=== PATIENT | female | born 1965 | race Caucasian/White ===

== ENCOUNTER 2020-06-08 22:32 | Observation (INO) | payer SELFPAY ==
[2020-06-08] MEDS ORDERED: GI Cocktail Oral Solution 30 ML PO ONE (22:58)
[2020-06-08] MEDS ORDERED: LORazepam 1 MG Tab PO ONE (23:11)
--- NOTE | 2020-06-08 23:11 | EDM.PDOC ---
ED HPI GENERAL MEDICAL PROBLEM - General Stated Complaint: ER Time Seen by Provider: 06/08/20 22:32 Source of Information: Reports: Patient History Limitations: Reports: No Limitations - History of Present Illness INITIAL COMMENTS - FREE TEXT/NARRATIVE: Pt. presents to ER via [facility]. Pt. called police and was making paranoid statements. She was subsequently brought to ER. Pt. does have a complaint of epi gastric pain, and states that the discomfort is consistent with her GERD. 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 She states that she hears messages at random, and also from music. She states that she had been working at [employer], and that she lost her job recently because they were concerned about her mental health, as she was making paranoid statements. She currently does not have a PCP or mental health care provider, partially due to the fact that she has no insurance. She moved to [place] in October and lives in an apartment. Denies any use of drugs or alcohol. Pt. states that she previously has been on psych meds but hasn't been for about 3 years. She has never been in our ER, but in reviewing her chart, it appears that she had suicide attempts in 2012 and 2013. It appears that she has been making paranoid/hallucinatory statements for the past several years. She is diagnosed with depression and PTSD, and was hospitalized for mental health at [facility] in 2013. Again, her primary complaint today is abdominal and chest pain, see above. Denies any jaw, arm, neck or back pain. No palpitations. Denies any shortness of breath. She has had some cough and does smoke cigarettes. No sinus congestion, sore throat, fever or chills. Onset: Today Onset Date: 06/08/20 Location: Reports: Chest, Abdomen Bilateral Middle Abdominal Pain Score (Numeric/FACES): 5 - Related Data Allergies Allergy/AdvReac Type Severity Reaction Status Date / Time acetaminophen [From Percocet] Allergy Cannot Verified 04/17/19 23:47 MDT Remember amantadine Allergy Cannot Verified 04/17/19 23:47 MDT Remember amoxicillin Allergy Cannot Verified 04/17/19 23:47 MDT Remember ciprofloxacin [From Cipro] Allergy Cannot Verified 04/17/19 23:47 MDT Remember doxycycline Allergy Cannot Verified 04/17/19 23:47 MDT Remember gentamicin Allergy Cannot Verified 04/17/19 23:47 MDT Remember ketorolac [From Toradol] Allergy Cannot Verified 04/17/19 23:47 MDT Remember oseltamivir [From Tamiflu] Allergy Cannot Verified 04/17/19 23:47 MDT Remember oxycodone [From Percocet] Allergy Cannot Verified 04/17/19 23:47 MDT Remember polymyxin B [From Polytrim] Allergy Cannot Verified 04/17/19 23:47 MDT Remember sulfamethoxazole Allergy Cannot Verified 04/17/19 23:47 MDT Remember trimethoprim [From Polytrim] Allergy Cannot Verified 04/17/19 23:47 MDT Remember Home Meds: Home Meds Aspirin [Aspirin EC] 325 mg PO 04/17/19 [History] Diltiazem [Cardizem CD] 04/17/19 [History] Furosemide 04/17/19 [History] Pantoprazole Sodium 04/17/19 [History] LORazepam [Ativan] 0.5 mg PO Q24H PRN #5 tablet 04/18/19 [Rx] Sucralfate [Carafate] 1 gm PO Q6H #28 tablet 04/18/19 [Rx] Past Medical History Cardiovascular History: Reports: Hypertension Psychiatric History: Reports: Anxiety, Depression Social & Family History - Family History Family Medical History: Noncontributory ED ROS GENERAL - Review of Systems Review Of Systems: See Below Constitutional: Reports: No Symptoms HEENT: Reports: No Symptoms Respiratory: Reports: No Symptoms Cardiovascular: Reports: Chest Pain Endocrine: Reports: No Symptoms GI/Abdominal: Reports: Abdominal Pain (epigastric) : Reports: No Symptoms Musculoskeletal: Reports: No Symptoms Skin: Reports: No Symptoms Neurological: Reports: No Symptoms Psychiatric: Reports: Anxiety, Hallucinations, Other (paranoia) Hematologic/Lymphatic: Reports: No Symptoms Immunologic: Reports: No Symptoms ED EXAM, GENERAL - Physical Exam Exam: See Below Exam Limited By: No Limitations General Appearance: Alert, WD/WN, No Apparent Distress Eye Exam: Bilateral Eye: EOMI, PERRL Nose: Normal Inspection, Normal Mucosa, No Blood Throat/Mouth: Normal Inspection, Normal Teeth, Normal Gums, No Airway Compromise Head: Atraumatic, Normocephalic Neck: Normal Inspection, Supple, Non-Tender, Full Range of Motion Respiratory/Chest: No Respiratory Distress, Normal Breath Sounds, Decreased Breath Sounds GI/Abdominal: Soft, Non-Tender, No Mass (Female) Exam: Deferred Rectal (Female) Exam: Deferred Back Exam: Normal Inspection, Full Range of Motion Extremities: Normal Inspection, Normal Range of Motion, Non-Tender, No Pedal Edema, Normal Capillary Refill Neurological: Alert, Oriented, CN II-XII Intact, Normal Cognition, No Motor/Sens ory Deficits Psychiatric: Anxious Skin Exam: Warm, Dry, Intact, Normal Color, No Rash Lymphatic: No Adenopathy Course - Vital Signs Last Recorded V/S: Last Vital Signs Temp 37.8 C 06/08/20 23:37 Pulse 81 06/08/20 23:37 Resp 16 06/08/20 23:37 BP 153/78 H 06/08/20 23:37 Pulse Ox 95 06/08/20 23:37 - Orders/Labs/Meds Orders: Active Orders 24 hr Category Date Time Status EKG Documentation Completion [RC] STAT Care 06/08/20 22:58 Active Chest 2V [CR] Stat Exams 06/08/20 23:41 Ordered CULTURE BLOOD [BC] Stat Lab 06/08/20 23:49 Ordered CULTURE BLOOD [BC] Stat Lab 06/08/20 23:49 Ordered LACTIC ACID [CHEM] Stat Lab 06/08/20 23:49 Ordered Sodium Chloride 0.9% [Saline Flush] Med 06/08/20 23:49 Ordered 10 ml FLUSH ASDIRECTED PRN Blood Culture x2 Reflex Set [OM.PC] Stat Oth 06/08/20 23:49 Ordered Peripheral IV Insertion Adult [OM.PC] Routine Oth 06/08/20 23:49 Ordered Medication Orders Sodium Chloride (Saline Flush) 10 ml FLUSH ASDIRECTED PRN PRN Reason: Keep Vein Open Labs: Laboratory Tests 06/08/20 06/08/20 06/08/20 Range/Units 23:23 23:23 23:23 WBC 13.9 H (4.0-10.0) x10^3/uL RBC 5.11 (4.00-5.50) x10^6/uL Hgb 15.2 (12.0-16.0) g/dL Hct 45.1 (33.0-47.0) % MCV 88.3 (78.0-93.0) fL MCH 29.7 (26.0-32.0) pg MCHC 33.7 (32.0-36.0) g/dL RDW Coeff of Estephania 13.4 (10.0-15.0) % Plt Count 253 (130-400) x10^3/uL Neut % (Auto) 71.9 (50.0-80.0) % Lymph % (Auto) 21.9 L (25.0-50.0) % Atkinson % (Auto) 5.3 (2.0-11.0) % Eos % (Auto) 0.7 (0.0-4.0) % Baso % (Auto) 0.2 (0.2-1.2) % PT 11.2 (9.5-12.3) SEC INR 1.0 L (2.0-3.5) Sodium 137 (136-145) mmol/L Potassium 3.7 (3.5-5.1) mmol/L Chloride 102 (98-107) mmol/L Carbon Dioxide 25 (21-32) mmol/L Anion Gap 13.7 (10-20) mmol/L BUN 10 (7-18) mg/dL Creatinine 0.8 (0.55-1.02) mg/dL Est Cr Clr Drug Dosing 75.26 mL/min Estimated GFR (MDRD) > 60 Glucose 113 H (74-106) mg/dL Calcium 9.0 (8.5-10.1) mg/dL Corrected Calcium 9.32 (8.5-10.1) mg/dL Magnesium 1.9 (1.8-2.4) mg/dL Total Bilirubin 0.3 (0.2-1.0) mg/dL AST 12 L (15-37) U/L ALT 18 (14-59) U/L Alkaline Phosphatase 69 (46-116) U/L Troponin I (<=0.056) ng/mL Total Protein 7.4 (6.4-8.2) g/dL Albumin 3.6 (3.4-5.0) g/dL Globulin 3.8 Albumin/Globulin Ratio 0.95 TSH, Ultra Sensitive 2.819 (0.358-3.74) uIU/mL Urine Color (YELLOW) Urine Appearance (CLEAR) Urine pH (5.0-8.0) Ur Specific Sob[place] Urine Protein (NEGATIVE) mg/dL Urine Glucose (UA) (NEGATIVE) mg/dL Urine Ketones (NEGATIVE) mg/dL Urine Occult Blood (NEGATIVE) Urine Nitrite (NEGATIVE) Urine Bilirubin (NEGATIVE) Urine Urobilinogen (0.2) EU/dL Ur Leukocyte Esterase (NEGATIVE) Urine HCG, Qual (NEGATIVE) Urine Opiates Screen (NEGATIVE) Ur Buprenorphine Scrn (NEGATIVE) Ur Oxycodone Screen (NEGATIVE) Ur EDDP (Meth Metab) (NEGATIVE) Urine Methadone Screen (NEGATIVE) Acetaminophen 0 L (10-30) ug/ml Ur Barbituates Screen (NEGATIVE) Ur Tricyclics Screen (NEGATIVE) Ur Phencyclidine Scrn (NEGATIVE) Ur Amphetamines Screen (NEGATIVE) U Methamphetamines Scrn (NEGATIVE) Urine MDMA Screen (NEGATIVE) U Benzodiazepines Scrn (NEGATIVE) Urine Cocaine Screen (NEGATIVE) U Marijuana (THC) Screen (NEGATIVE) Ethyl Alcohol < 3 (0-3) mg/dL COVID-19 (ERIC) (NEGATIVE) 06/08/20 06/09/20 06/09/20 Range/Units 23:23 00:00 00:00 WBC (4.0-10.0) x10^3/uL RBC (4.00-5.50) x10^6/uL Hgb (12.0-16.0) g/dL Hct (33.0-47.0) % MCV (78.0-93.0) fL MCH (26.0-32.0) pg MCHC (32.0-36.0) g/dL RDW Coeff of Estephania (10.0-15.0) % Plt Count (130-400) x10^3/uL Neut % (Auto) (50.0-80.0) % Lymph % (Auto) (25.0-50.0) % Atkinson % (Auto) (2.0-11.0) % Eos % (Auto) (0.0-4.0) % Baso % (Auto) (0.2-1.2) % PT (9.5-12.3) SEC INR (2.0-3.5) Sodium (136-145) mmol/L Potassium (3.5-5.1) mmol/L Chloride (98-107) mmol/L Carbon Dioxide (21-32) mmol/L Anion Gap (10-20) mmol/L BUN (7-18) mg/dL Creatinine (0.55-1.02) mg/dL Est Cr Clr Drug Dosing mL/min Estimated GFR (MDRD) Glucose (74-106) mg/dL Calcium (8.5-10.1) mg/dL Corrected Calcium (8.5-10.1) mg/dL Magnesium (1.8-2.4) mg/dL Total Bilirubin (0.2-1.0) mg/dL AST (15-37) U/L ALT (14-59) U/L Alkaline Phosphatase (46-116) U/L Troponin I < 0.017 (<=0.056) ng/mL Total Protein (6.4-8.2) g/dL Albumin (3.4-5.0) g/dL Globulin Albumin/Globulin Ratio TSH, Ultra Sensitive (0.358-3.74) uIU/mL Urine Color Light yellow (YELLOW) Urine Appearance Clear (CLEAR) Urine pH 6.5 (5.0-8.0) Ur Specific [place] <=1.005 Urine Protein Negative (NEGATIVE) mg/dL Urine Glucose (UA) Negative (NEGATIVE) mg/dL Urine Ketones Negative (NEGATIVE) mg/dL Urine Occult Blood Negative (NEGATIVE) Urine Nitrite Negative (NEGATIVE) Urine Bilirubin Negative (NEGATIVE) Urine Urobilinogen 0.2 (0.2) EU/dL Ur Leukocyte Esterase Negative (NEGATIVE) Urine HCG, Qual (NEGATIVE) Urine Opiates Screen Negative (NEGATIVE) Ur Buprenorphine Scrn Negative (NEGATIVE) Ur Oxycodone Screen Negative (NEGATIVE) Ur EDDP (Meth Metab) Negative (NEGATIVE) Urine Methadone Screen Negative (NEGATIVE) Acetaminophen (10-30) ug/ml Ur Barbituates Screen Negative (NEGATIVE) Ur Tricyclics Screen Negative (NEGATIVE) Ur Phencyclidine Scrn Negative (NEGATIVE) Ur Amphetamines Screen Negative (NEGATIVE) U Methamphetamines Scrn Negative (NEGATIVE) Urine MDMA Screen Negative (NEGATIVE) U Benzodiazepines Scrn Negative (NEGATIVE) Urine Cocaine Screen Negative (NEGATIVE) U Marijuana (THC) Screen Negative (NEGATIVE) Ethyl Alcohol (0-3) mg/dL COVID-19 (ERIC) (NEGATIVE) 06/09/20 06/09/20 Range/Units 00:00 00:00 WBC (4.0-10.0) x10^3/uL RBC (4.00-5.50) x10^6/uL Hgb (12.0-16.0) g/dL Hct (33.0-47.0) % MCV (78.0-93.0) fL MCH (26.0-32.0) pg MCHC (32.0-36.0) g/dL RDW Coeff of Estephania (10.0-15.0) % Plt Count (130-400) x10^3/uL Neut % (Auto) (50.0-80.0) % Lymph % (Auto) (25.0-50.0) % Atkinson % (Auto) (2.0-11.0) % Eos % (Auto) (0.0-4.0) % Baso % (Auto) (0.2-1.2) % PT (9.5-12.3) SEC INR (2.0-3.5) Sodium (136-145) mmol/L Potassium (3.5-5.1) mmol/L Chloride (98-107) mmol/L Carbon Dioxide (21-32) mmol/L Anion Gap (10-20) mmol/L BUN (7-18) mg/dL Creatinine (0.55-1.02) mg/dL Est Cr Clr Drug Dosing mL/min Estimated GFR (MDRD) Glucose (74-106) mg/dL Calcium (8.5-10.1) mg/dL Corrected Calcium (8.5-10.1) mg/dL Magnesium (1.8-2.4) mg/dL Total Bilirubin (0.2-1.0) mg/dL AST (15-37) U/L ALT (14-59) U/L Alkaline Phosphatase (46-116) U/L Troponin I (<=0.056) ng/mL Total Protein (6.4-8.2) g/dL Albumin (3.4-5.0) g/dL Globulin Albumin/Globulin Ratio TSH, Ultra Sensitive (0.358-3.74) uIU/mL Urine Color (YELLOW) Urine Appearance (CLEAR) Urine pH (5.0-8.0) Ur Specific Sob[place] Urine Protein (NEGATIVE) mg/dL Urine Glucose (UA) (NEGATIVE) mg/dL Urine Ketones (NEGATIVE) mg/dL Urine Occult Blood (NEGATIVE) Urine Nitrite (NEGATIVE) Urine Bilirubin (NEGATIVE) Urine Urobilinogen (0.2) EU/dL Ur Leukocyte Esterase (NEGATIVE) Urine HCG, Qual Negative (NEGATIVE) Urine Opiates Screen (NEGATIVE) Ur Buprenorphine Scrn (NEGATIVE) Ur Oxycodone Screen (NEGATIVE) Ur EDDP (Meth Metab) (NEGATIVE) Urine Methadone Screen (NEGATIVE) Acetaminophen (10-30) ug/ml Ur Barbituates Screen (NEGATIVE) Ur Tricyclics Screen (NEGATIVE) Ur Phencyclidine Scrn (NEGATIVE) Ur Amphetamines Screen (NEGATIVE) U Methamphetamines Scrn (NEGATIVE) Urine MDMA Screen (NEGATIVE) U Benzodiazepines Scrn (NEGATIVE) Urine Cocaine Screen (NEGATIVE) U Marijuana (THC) Screen (NEGATIVE) Ethyl Alcohol (0-3) mg/dL COVID-19 (ERIC) Negative (NEGATIVE) Meds: Medications Generic Name Dose Route Start Last Admin Trade Name Freq PRN Reason Stop Dose Admin Sodium Chloride 10 ml 06/08/20 23:49 Saline Flush FLUSH ASDIRECTED PRN Keep Vein Open Discontinued Medications Generic Name Dose Route Start Last Admin Trade Name Freq PRN Reason Stop Dose Admin Al Hydroxide/Mg Hydroxide 30 ml 06/08/20 22:58 06/08/20 23:06 Gi Cocktail PO 06/08/20 22:59 30 ml ONETIME ONE Administration Lorazepam 1 mg 06/08/20 23:11 06/08/20 23:18 Ativan PO 06/08/20 23:12 1 mg ONETIME ONE Administration Departure - Departure Time of Disposition: 01:14 Disposition: Refer to Observation Clinical Impression: Hallucinations, Chest pain - Discharge Information Referrals: PCP,None [Primary Care Provider] - Sepsis Event Note (ED) - Focused Exam Vital Signs: Vital Signs Temp Pulse Resp BP Pulse Ox 06/08/20 23:37 37.8 C 81 16 153/78 H 95 06/08/20 22:38 37.7 C 99 18 152/81 H 98 - Problem List Review Problem List Initiated/Reviewed/Updated: Yes - My Orders Last 24 Hours: My Active Orders 06/08/20 22:58 EKG Documentation Completion [RC] STAT 06/08/20 23:41 Chest 2V [CR] Stat 06/08/20 23:49 CULTURE BLOOD [BC] Stat CULTURE BLOOD [BC] Stat LACTIC ACID [CHEM] Stat Sodium Chloride 0.9% [Saline Flush] 10 ml FLUSH ASDIRECTED PRN Blood Culture x2 Reflex Set [OM.PC] Stat Peripheral IV Insertion Adult [OM.PC] Routine - Assessment/Plan Last 24 Hours: My Active Orders 06/08/20 22:58 EKG Documentation Completion [RC] STAT 06/08/20 23:41 Chest 2V [CR] Stat 06/08/20 23:49 CULTURE BLOOD [BC] Stat CULTURE BLOOD [BC] Stat LACTIC ACID [CHEM] Stat Sodium Chloride 0.9% [Saline Flush] 10 ml FLUSH ASDIRECTED PRN Blood Culture x2 Reflex Set [OM.PC] Stat Peripheral IV Insertion Adult [OM.PC] Routine Plan: Pt. labs are all within normal limits with the exception of a mildly elevated white count. Will admit the patient observation and trend this in the AM. Will trend trop I and lactic acid, both of which are within normal limits. Pt. seems less agitated following the ativan. She was also given a GI cocktail and was started on protonix. The [facility] does not currently have any beds available. Again, she is not suicidal or homicidal. Will consult aids social worker tomorrow for needs assessment from a mental health standpoint. Pt. is a code 1.
[2020-06-08] MEDS ORDERED: Sodium Chloride 0.9% 10 ML Syringe FLUSH PRN (23:49)
[2020-06-08 23:58] LABS: CHLORIDE,CL 102 mmol/L (98-107); SODIUM,NA 137 mmol/L (136-145)
[2020-06-08 23:59] LABS: ANION GAP 13.7 mmol/L (10-20)
[2020-06-09 00:04] LABS: ACETAMINOPHEN 0 ug/ml (10-30)
[2020-06-09 00:17] LABS: BUPRENORPHINE,URINE NEGATIVE (NEGATIVE); MARIJUANA,URINE NEGATIVE (NEGATIVE); METHYLENEDIOXYMETHAMP,UR NEGATIVE (NEGATIVE); PHENCYCLIDINE,URINE NEGATIVE (NEGATIVE)
[2020-06-09] MEDS ORDERED: Pantoprazole 40 MG Vial IVPUSH ONE (01:14)
[2020-06-09] MEDS ORDERED: LORazepam 0.5 MG Tab PO PRN (01:49)
[2020-06-09] MEDS: Albuterol/Ipratropium 3.0-0.5 MG/3 ML Neb Soln NEB SCH ×3 (02:45→10:52)
[2020-06-09] MEDS ORDERED: predniSONE 20 MG Tab PO SCH (08:00)
--- NOTE | 2020-06-09 08:44 | CR ---
[id number] RAD/RAD Chest PA And Lateral EXAM: RAD Chest PA And Lateral INDICATION: CHEST PAIN COMPARISON: None. DISCUSSION: Cardiomediastinal silhouette is normal in size and contour. No infiltrate, effusion, pneumothorax, or edema. IMPRESSION: No acute cardiopulmonary abnormality. Sebas Walls DO 06/09/20 0842 Thank you for allowing us to participate in the care of your patient.
--- NOTE | 2020-06-10 19:44 | PCM.DCSUM1 ---
Discharge Summary - Hospital Course Free Text/Narrative:: Pt. labs were normalized in the AM. She had no white count. She stated that her epigastric pain was resolved. Lactic acid and Troponin were trended and were normal. Pt. was sleeping heavily on rounds. She was tolerating food and drink. She was afebrile. Denied any chest pain, shortness of breath, nausea, vomiting, or diarrhea. Pt. was still having auditory hallucinations. No bloody stools. - Discharge Data Discharge Date: 06/09/20 Discharge Disposition: Against Medical Advice 07 Condition: Good - Referral to Home Health Primary Care Physician: PCP None - Patient Summary/Data Consults: Consultations 06/09/20 01:47 Consult to Case Management/[employer]iller [CONS] Routine 06/09/20 08:56 OT Evaluation and Treatment [CONS] Routine - Discharge Plan Home Medications: Home Meds Aspirin [Aspirin EC] 325 mg PO 04/17/19 [History] Diltiazem [Cardizem CD] 04/17/19 [History] Furosemide 20 mg PO DAILY 04/17/19 [History] Pantoprazole Sodium 40 mg PO DAILY 04/17/19 [History] LORazepam [Ativan] 0.5 mg PO Q24H PRN #5 tablet 04/18/19 [Rx] Sucralfate [Carafate] 1 gm PO Q6H #28 tablet 04/18/19 [Rx] Forms: ED Department Discharge Referrals: PCP,None [Primary Care Provider] - - Discharge Summary/Plan Comment DC Time >30 min.: Yes Discharge Summary/Plan Comment: Cognitive eval was ordered for the patient by OT, and transition social worker was consulted as well. When we were attempting to get the patient placed in a psychiatric facility, the patient absconded and ran out of the hospital. Police was contacted and they were unable to find the patient. Unable to place the patient on a hold at this point, per the advice of [facility]. She is not an immediate threat to herself or others. She ran from the hospital and did not sign AMA. - General Info Date of Service: 06/09/20 Functional Status: Reports: Pain Controlled, Tolerating Diet, Urinating - Review of Systems General: Reports: No Symptoms HEENT: Reports: No Symptoms Pulmonary: Reports: No Symptoms Cardiovascular: Reports: No Symptoms Gastrointestinal: Reports: No Symptoms Genitourinary: Reports: No Symptoms Musculoskeletal: Reports: No Symptoms Skin: Reports: No Symptoms Neurological: Reports: No Symptoms Psychiatric: Reports: Agitation, Hallucinations. Denies: Suicidal Ideation, Homicidal Ideation - Patient Data Vitals - Most Recent: Last Vital Signs Temp 36.9 C 06/09/20 11:08 Pulse 71 06/09/20 11:08 Resp 20 06/09/20 11:08 BP 122/45 L 06/09/20 11:08 Pulse Ox 91 L 06/09/20 11:08 Weight - Most Recent: 86.183 kg BHANU Results - Last 24 hrs: Microbiology 06/09/20 00:32 Aerobic Blood Culture - Preliminary Blood - Venous NO GROWTH AFTER 1 DAY Anaerobic Blood Culture - Preliminary NO GROWTH AFTER 1 DAY 06/09/20 00:37 Aerobic Blood Culture - Preliminary Blood - Venous - Lab Draw NO GROWTH AFTER 1 DAY Anaerobic Blood Culture - Preliminary NO GROWTH AFTER 1 DAY Med Orders - Current: Current Medications Discontinued Medications Al Hydroxide/Mg Hydroxide (Gi Cocktail) 30 ml PO ONETIME ONE Stop: 06/08/20 22:59 Last Admin: 06/08/20 23:06 Dose: 30 ml Documented by: Albuterol/Ipratropium (Duoneb 3.0-0.5 Mg/3 Ml) 3 ml NEB Q4HRRT [facility] Last Admin: 06/09/20 10:52 Dose: 3 ml Documented by: Lorazepam (Ativan) 1 mg PO ONETIME ONE Stop: 06/08/20 23:12 Last Admin: 06/08/20 23:18 Dose: 1 mg Documented by: Lorazepam (Ativan) 0.5 mg PO Q4H PRN PRN Reason: Anxiety Pantoprazole Sodium (Protonix Iv) 40 mg IVPUSH ONETIME ONE Stop: 06/09/20 01:15 Last Admin: 06/09/20 01:31 Dose: 40 mg Documented by: Prednisone (Prednisone) 40 mg PO WITHBREAKFAST [facility] Last Admin: 06/09/20 08:01 Dose: 40 mg Documented by: Sodium Chloride (Saline Flush) 10 ml FLUSH ASDIRECTED PRN PRN Reason: Keep Vein Open - Exam General: Reports: Alert, Oriented HEENT: Reports: Pupils Equal, Pupils Reactive, EOMI, Mucous Membr. Moist/[place] Neck: Reports: Supple Lungs: Reports: Clear to Auscultation, Normal Respiratory Effort Cardiovascular: Reports: Regular Rate, Regular Rhythm GI/Abdominal Exam: Soft, Non-Tender, No Mass (Female) Exam: Deferred Rectal (Female) Exam: Deferred Extremities: Normal Inspection, Normal Range of Motion, Normal Capillary Refill Skin: Reports: Warm, Dry, Intact
== END 2020-06-09 12:30 | disposition left against medical advice (07) ==
LOC: VM.ED 22:32 → VM.MS 06-09 01:12 → UNDOADMOB 06-09 01:29
PROVIDERS: ADMIT Physician Assistant; ATTEND Physician Assistant
DX: R44.0 Auditory hallucinations (principal); R10.13 Epigastric pain; R07.9 Chest pain, unspecified; I10 Essential (primary) hypertension; F41.9 Anxiety disorder, unspecified; F32.9 Major depressive disorder, single episode, unspecified; F43.10 Post-traumatic stress disorder, unspecified; Z20.828 Contact with and (suspected) exposure to other viral communicable diseases; Z88.1 Allergy status to other antibiotic agents; Z88.6 Allergy status to analgesic agent; Z88.2 Allergy status to sulfonamides; Z88.0 Allergy status to penicillin; Z88.8 Allergy status to other drugs, medicaments and biological substances; Z79.82 Long term (current) use of aspirin; Z79.899 Other long term (current) drug therapy; Z91.5 Personal history of self-harm
CPT/HCPCS: 36415; 71046; 80053; 80305-QW; 80307; 81003; 81025; 83605; 83735; 84443; 84484; 85025; 85379; 85610; 87040; 93005; 94640; 94760; 96374; 99285-25; A9270-GY; C9113; G0378; J7512; J7620-GY; U0002